=== PATIENT | female | born 1955 | race Two or more races ===

== ENCOUNTER 2016-12-19 17:05 | Inpatient (IN) | payer OTHER ==
[~2016-12-19] VITALS: Ht 157.5 cm; Wt 65.2 kg
[~2016-12-19 17:05] MED LIST: XANAX PO; ZOLOFT PO; ZOLPIDEM PO
[2016-12-19] MEDS ORDERED: SOD CHLORIDE 0.9% 1,000 ML IV STA (18:15)
--- NOTE | 2016-12-19 18:52 | RADRPT ---
PROCEDURE: CT brain without contrast CLINICAL INDICATION: Syncope TECHNIQUE: A CT of the brain was performed utilizing axial sections from the skull base through th e vertex without contrast. Sagittal and coronal images were also reformatted. The exam CTDIvol = 40. 35 mGy and DLP = 106.33 mGy-cm. COMPARISON: None available FINDINGS: No acute intracranial hemorrhage is identified. There is no mass effect or midline shift. No extra -axial fluid collection is seen. The ventricles and sulci are within normal limits for size and con figuration. The density of the brain is within normal limits. Gonzalez-white differentiation is preser bryon. The osseous structures are unremarkable. The mastoid air cells and visualized paranasal sinuses are clear. RPTAT:HJJR IMPRESSION: Unremarkable noncontrast CT of the brain. Physician Breanna Date Time Electronically viewed and signed by Physician Breanna on 12/19/2016 18:52 /
--- NOTE | 2016-12-19 18:57 | RADRPT ---
PROCEDURE: CT chest without contrast CLINICAL INDICATION: Syncope TECHNIQUE: CT scan of the chest with contrast was performed without intravenous contrast, the the patient imaged in a left lateral decubitus position. Coronal and sagittal images were reformatted. The CTDIvol = 6.28 mGy and DLP = 261.42 mGycm. COMPARISON: None available. FINDINGS: Lungs, airway and pleura: The trachea and bronchi are patent as well as normal in caliber. There i s no evidence of pneumothorax, parenchymal contusion or pulmonary infiltrate. No mass lesion is dem onstrated. A 5 mm semi solid nodule in the right middle lobe near the junction of the minor and edouard or fissures is noted (series 4 image 66). No other nodules are demonstrated. Mild dependent subsegm ental atelectasis in the inferior lingula and lateral left lower lobe is identified The pleural spa rupali are clear, without effusions. Mediastinum, rosalva and cardiovascular: The heart is normal in size. There is no evidence for perica rdial effusion. The thoracic aorta is normal in caliber. There is no evidence for hilar mass and n o mediastinal adenopathy is present. No mediastinal hematoma or pneumomediastinum is seen The esoph katarzyna is normal in caliber. Osseous structures and musculoskeletal findings: Concave appearance of the superior T12, L1 and L2 endplates likely related to chronic mild compression deformities. There is no evidence of acute fra cture, lytic or blastic lesion. Mild thoracic spondylosis is present. No chest wall abnormalities are present. The axillary regions are unremarkable. Visualized upper abdomen: No abnormalities are identified. The adrenal glands are normal bilateral ly. RPTAT:HJJR IMPRESSION: 1. Minimal dependent subsegmental atelectasis in the left lung to be in the decubitus positioning f or imaging. No evidence of acute intrathoracic abnormality. 2. Approximately 5 mm right middle lobe pulmonary nodule without calcification is indeterminate. F ollow-up evaluation should be based upon Fleischner criteria. 3. Chronic-appearing superior T12, L1 and L2 endplate compression deformities with moderate thoraci c spondylosis. Physician Breanna Date Time Electronically viewed and signed by Physician Breanna on 12/19/2016 18:57 JR/
[2016-12-19 19:20] LABS: ADD SCAN DIFF NO
[2016-12-19 19:21] LABS: BASOPHIL # 0.1 10^3/ul (0.0-0.1); BASOPHILS % 0.6 % (0.0-2.0); EOSINOPHILS # 0.2 10^3/ul (0.0-0.5); EOSINOPHILS % 2.3 % (0.0-7.0); HEMOGLOBIN 14.6 g/dl (12.0-16.0); LYMPHOCYTES # 1.2 10^3/ul (0.8-2.9); LYMPHOCYTES % 13.1 % (15.0-51.0); MEAN CORPUSCULAR HGB CONC 32.4 g/dl (32.0-37.0); MEAN CORPUSCULAR VOLUME 89.5 fl (82.0-101.0); MEAN PLATELET VOLUME 10.4 fl (7.4-10.4); MONOCYTE # 0.6 10^3/ul (0.3-0.9); MONOCYTES % 7.2 % (0.0-11.0); NEUTROPHIL # 6.7 10^3/ul (1.6-7.5); NEUTROPHILS % 76.3 % (39.0-77.0); PLATELET COUNT 287 10^3/UL (140-415); RED BLOOD COUNT 5.03 10^6/ul (4.20-5.40); RED CELL DISTRIBUTION WIDTH 12.6 % (11.5-14.5); WHITE BLOOD COUNT 8.8 10^3/ul (4.8-10.8)
[2016-12-19 19:30] LABS: INR 0.81; PROTIME 11.2 Sec (12.2-14.2); PT RATIO 0.9
[2016-12-19 19:31] LABS: CHLORIDE 101 mmol/L (97-110)
[2016-12-19 19:32] LABS: PARTIAL THROMBOPLASTIN TIME 26.9 Sec (25.0-35.0); SODIUM 144 mmol/L (135-144)
[2016-12-19 19:34] LABS: ALBUMIN/GLOBULIN RATIO 1.42; ALKALINE PHOSPHATASE 122 IU/L (42-121); ANION GAP 18 (8-16); ASPARTATE AMINO TRANSFERASE 60 IU/L (15-46); BILIRUBIN,INDIRECT 0.2 mg/dl (0-1.1); BILIRUBIN,TOTAL 0.2 mg/dl (0.2-1.3); BLOOD UREA NITROGEN 12 mg/dl (7-20); CARBON DIOXIDE 29 mmol/L (21-31); CREATININE 0.65 mg/dl (0.44-1.00); TOTAL PROTEIN 8.5 g/dl (6.1-8.1)
[2016-12-19 19:35] LABS: ALANINE AMINOTRANSFERASE 62 IU/L (13-69); CALCIUM 9.4 mg/dl (8.4-10.2); CREATINE KINASE 991 IU/L (23-200); GLUCOSE 114 mg/dl (70-220)
[2016-12-19 19:43] LABS: CK-MB 6.61 ng/ml (0.0-2.4)
[2016-12-19 19:44] LABS: ADD UMIC YES; URINE BILIRUBIN (Dip) NEGATIVE (NEGATIVE); URINE BLOOD (Dip) NEGATIVE (NEGATIVE); URINE COLOR LT. YELLOW (YELLOW); URINE GLUCOSE (Dip) NEGATIVE (NEGATIVE); URINE KETONES (Dip) NEGATIVE (NEGATIVE); URINE LEUKOCYTE ESTERASE (Dip) 2+ (NEGATIVE); URINE NITRITE (Dip) NEGATIVE (NEGATIVE); URINE TOTAL PROTEIN (Dip) NEGATIVE (NEGATIVE); URINE UROBILINOGEN (Dip) 0.2 E.U./dL (0.1-1.0)
[2016-12-19] MEDS ORDERED: ZOLP10TA5 PO (19:47)
[2016-12-19] MEDS ORDERED: [UNRECOGNIZED DRUG - CODE] PO (19:50)
[2016-12-19] MEDS ORDERED: CHOL100062 PO (19:50)
[2016-12-19] MEDS ORDERED: GLUC-105 PO (19:51)
[2016-12-19] MEDS ORDERED: GLUC1CAP38 PO (19:51)
[2016-12-19] MEDS ORDERED: CHLO4TAB PO (19:52)
[2016-12-19] MEDS ORDERED: METF500T4 PO (19:53)
[2016-12-19] MEDS ORDERED: SERT25TA83 PO (19:56)
[2016-12-19] MEDS ORDERED: AMOX600S3 PO (19:58)
[2016-12-19 20:00] LABS: TROPONIN-I < 0.012 ng/ml (0.00-0.12)
[2016-12-19] MEDS ORDERED: ONDANSETRON 4 MG INJ IV STA (20:09)
[2016-12-19] MEDS ORDERED: morphine 2 MG INJ IV STA (20:09)
[2016-12-19] MEDS ORDERED: DICLOFENAC SODIUM 37.5 MG/ML VIAL IV STA (20:17)
[2016-12-19] MEDS ORDERED: ACETAMINOPHEN 325 MG TAB PO PRN (21:00)
[2016-12-19] MEDS ORDERED: ONDANSETRON 4 MG INJ IV PRN (21:00)
[2016-12-19 21:06] LABS: BACTERIA,URINE FEW; SQUAMOUS EPITHELIAL CELL,UR FEW; URINE RBCS 0-2 /HPF (0)
[2016-12-19 21:46] LABS: D-DIMER 1188.27 ng/ml (<460)
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
[2016-12-19 22:30] VITALS: TEMP 97.8
[2016-12-19 23:05] VITALS: PULSE 66
[2016-12-20] VITALS (13 sets, daily range): BP systolic 85–103; BP diastolic 43–64; PULSE 59–69; RESP 18–20; Ht 157.5 cm; Wt 65.2 kg
[2016-12-20] MEDS ORDERED: ACETAMINOPHEN 325 MG TAB PO PRN
[2016-12-20] MEDS ORDERED: GLUCOSE GEL 15 GRAM TUBE PO PRN ×2 (00:30)
[2016-12-20] MEDS ORDERED: DEXTROSE 50% 50 ML SYRINGE IV PRN ×2 (00:30)
[2016-12-20] MEDS ORDERED: GLUCOSE GEL 15 GRAM TUBE BUCCAL PRN (00:30)
[2016-12-20] MEDS ORDERED: GLUCAGON 1 MG INJ IM PRN (00:30)
[2016-12-20] MEDS: SOD CHLORIDE 0.9% 1,000 ML IV SCH ×3 (00:36→16:39)
[2016-12-20] MEDS: HYDROCODONE/APAP (5/325) TAB PO PRN ×2 (00:37→09:06)
[2016-12-20] MEDS: ZOLPIDEM 5 MG TAB PO PRN ×2 (00:37→23:18)
[2016-12-20] MEDS: ACCU-CHEK XX SCH (01:23)
[2016-12-20] MEDS: PANTOPRAZOLE 40 MG INJ IV SCH (06:52)
[2016-12-20] MEDS: INSULIN ASPART [NOVOLOG] 3 ML PEN SC SCH ×4 (07:55→20:45)
[2016-12-20 08:18] LABS: ADD SCAN DIFF NO
[2016-12-20 08:32] LABS: BASOPHILS % 0.5 % (0.0-2.0); EOSINOPHILS # 0.3 10^3/ul (0.0-0.5); EOSINOPHILS % 4.6 % (0.0-7.0); HEMATOCRIT 40.7 % (37.0-47.0); HEMOGLOBIN 13.2 g/dl (12.0-16.0); LYMPHOCYTES # 0.9 10^3/ul (0.8-2.9); LYMPHOCYTES % 13.8 % (15.0-51.0); MEAN CORPUSCULAR HEMOGLOBIN 29.3 pg (29.0-33.0); MEAN CORPUSCULAR HGB CONC 32.4 g/dl (32.0-37.0); MEAN CORPUSCULAR VOLUME 90.4 fl (82.0-101.0); MEAN PLATELET VOLUME 11.4 fl (7.4-10.4); MONOCYTE # 0.6 10^3/ul (0.3-0.9); NEUTROPHIL # 4.5 10^3/ul (1.6-7.5); NEUTROPHILS % 71.8 % (39.0-77.0); PLATELET COUNT 212 10^3/UL (140-415); RED CELL DISTRIBUTION WIDTH 12.9 % (11.5-14.5); WHITE BLOOD COUNT 6.3 10^3/ul (4.8-10.8)
[2016-12-20 08:49] LABS: CHOL/HDL RATIO 5.5 RATIO; CREATININE 0.57 mg/dl (0.44-1.00); POTASSIUM 4.4 mmol/L (3.5-5.1)
[2016-12-20] MEDS: CHOLECALCIFEROL 1,000 UNIT TAB PO SCH (09:05)
[2016-12-20] MEDS: ASPIRIN 81 MG TAB PO SCH (09:05)
[2016-12-20] MEDS: SERTRALINE 50 MG TAB PO SCH (09:06)
[2016-12-20] MEDS ORDERED: ONDANSETRON 4 MG INJ IV PRN (17:30)
--- NOTE | 2016-12-20 18:30 | QN ---
Documentation Comment [id number] ALL CARVALHO MD Dec 20, 2016 18:30
[2016-12-20] MEDS: ATORVASTATIN 10 MG TAB PO SCH (20:44)
[2016-12-20] MEDS ORDERED: POLYETHYLENE GLYCOL 17 GM PACKET PO ONE (21:00)
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
[2016-12-21] VITALS (11 sets, daily range): BP systolic 93–110; BP diastolic 48–89; PULSE 52–66; RESP 18–20
[2016-12-21] MEDS: ACCU-CHEK XX SCH (02:00)
[2016-12-21] MEDS: PANTOPRAZOLE 40 MG INJ IV SCH (06:13)
[2016-12-21] MEDS: SOD CHLORIDE 0.9% 1,000 ML IV SCH ×2 (06:13→22:00)
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
[2016-12-21] MEDS: INSULIN ASPART [NOVOLOG] 3 ML PEN SC SCH ×4 (07:55→21:00)
[2016-12-21] MEDS: ASPIRIN 81 MG TAB PO SCH (08:49)
[2016-12-21] MEDS: POLYETHYLENE GLYCOL 17 GM PACKET PO SCH (08:50)
[2016-12-21] MEDS: CHOLECALCIFEROL 1,000 UNIT TAB PO SCH (08:50)
[2016-12-21] MEDS: SERTRALINE 50 MG TAB PO SCH (08:51)
--- NOTE | 2016-12-21 21:03 | RADRPT ---
Echocardiogram Report Patient Name: ILEANA UPTON Gender: Female Date: 1955 Study Date: 20-Dec-2016 Trading Manager: Darlene Felder [facility] Location: [id number] Ref. Physician: ALL CARVALHO Quality: Good Procedures: Transthoracic echocardiogram with complete 2D, M-Mode, and doppler examination. Indications: Syncope. 2D/M Mode Doppler Measurement Value Normal Ranges Measurement Value Normal Ranges LVIDd 2D 3.8 3.5 - 5.6 cm AV Peak Dario 1.7 m/sec LVIDs 2D 2.1 2.1 - 4.1 cm AV Peak PG 12.0 mmHg FS 2D 44.1 % LVOT Peak Dario 1.5 m/sec LVPWd 2D 0.9 0.6 - 1.1 cm LVOT Peak PG 9.0 mmHg IVSd 2D 1.0 0.6 - 1.1 cm MV E Peak Dario 1.1 m/sec IVS/LVPW 2D 1.1 MV A Peak Dario 0.8 m/sec AoR Diam 2D 2.6 2.0 - 3.7 cm MV E/A 1.4 LA/Ao 2D 1 0 - 1 MV Decel Time 141 msec EDV 2D 56.2 cm3 MV E/A 1.4 ESV 2D 9.8 cm3 TR Peak Dario 2.2 m/sec LA Dimen 2D 3.0 2.3 - 4.0 cm TR Peak PG 20.0 mmHg RVSP 23.0 mmHg Findings Left Ventricle: Normal left ventricular systolic function. Normal left ventricular cavity size. Normal left ventricular wall thickness. Ejection fraction is visually estimated at 6065 %. Tissue Doppler/Mitral Doppler indices are within normal limits. Right Ventricle: Normal right ventricular size. Normal right ventricular systolic function. Left Atrium: The left atrium is normal in size. Right Atrium: The right atrium is normal in size. Mitral Valve: Normal appearance and function of the mitral valve with trace physiologic regurgitation. Aortic Valve: Normal appearance of the aortic valve. No significant aortic stenosis or insufficiency. Tricuspid Valve: Normal appearance and function of the tricuspid valve with trace physiologic regurgitation. Normal right ventricular systolic pressure. Pulmonic Valve: Normal pulmonic valve appearance. Pericardium: Normal pericardium with no significant pericardial effusion. Aorta: Normal aortic root. IVC: Normal size and normal respiratory collapse consistent with normal right atrial pressure. Conclusions 1.Normal left ventricular systolic function. Normal left ventricular cavity size. Normal left ventricular wall thickness. Ejection fraction is visually estimated at 60-65 %. Tissue Doppler/Mitral Doppler indices are within normal limits. 2.Normal appearance and function of the mitral valve with trace physiologic regurgitation. 3.Normal appearance and function of the tricuspid valve with trace physiologic regurgitation. Normal right ventricular systolic pressure. Electronically Signed By: Jorge Luis Hubbard 21-Dec-2016 21:02:53 -0700 Patient Name: ILEANA UPTON Study Date: 20-Dec-2016 [id number]
[2016-12-21] MEDS: ATORVASTATIN 10 MG TAB PO SCH (21:59)
--- NOTE | 2016-12-21 23:00 | PN ---
Date/Time of Note Date/Time of Note DATE: 12/21/16 TIME: 22:59 Assessment/Plan VTE Prophylaxis VTE Prophylaxis Intervention: other Lines/Catheters IV C[facility] Type [facility] Peripheral IV Assessment/Plan Chief Complaint/Hosp Course IMPRESSION: 1. The patient has syncopal episode. 2. Rule out transient ischemic attack, rule out cerebrovascular accident, rule out seizures. 3. Rule out hypoglycemic episode. 4. Rule out drug-induced in the form of Ambien. plan per neuro Problems: Subjective 24 Hr Interval Summary Respiratory: no complaints Cardiovascular: no complaints Gastrointestinal: no complaints Exam/Review of Systems Vital Signs Vitals Vital Signs Date Time Temp Pulse Resp B/P Pulse Ox O2 Delivery O2 Flow Rate FiO2 12/21/16 20:39 57 12/21/16 19:33 98.2 20 103/51 96 12/20/16 19:54 Nasal Cannula 2.0 Intake and Output 12/20/16 12/20/16 12/21/16 15:00 23:00 07:00 Intake Total 800 ml 650 ml Balance 800 ml 650 ml Exam ENMT: nl external ears & nose Neck: supple Respiratory: clear to auscultation Cardiovascular: regular rate and rhythm Gastrointestinal: soft Musculoskeletal: nl extremities to inspection Extremities: normal pulses Results Result Diagram: 12/20/1670412/20/16 07 Results 24 hrs Laboratory Tests Test 12/21/16 07:36 12/21/16 11:39 12/21/16 17:54 12/21/16 21:57 Bedside Glucose 115 118 99 109 Medications Medications Current Medications Cholecalciferol (Vitamin D) 1,000 unit DAILY PO Last administered on 12/21/16 08:50; Admin Dose 1,000 UNIT; Start 12/20/16 at 09:00 Sertraline HCl (Zoloft) 25 mg QAM PO Last administered on 12/20/16 09:06; Admin Dose 25 MG; Start 12/20/16 at 09:00 Zolpidem Tartrate (Ambien) 10 mg QHS PRN PO INSOMNIA Last administered on 23:18; Admin Dose 10 MG; Start 12/20/16 at 00:00 Diagnostic Test (Pha) 1 ea 1 ea 02 XX ; Start 12/20/16 at 02:00 Sodium Chloride (NS) 1,000 ml @ 70 mls/hr [id number] IV Last administered on 12/21 22:00; Admin Dose 70 MLS/HR; Start 12/20/16 at 00:00 Aspirin (Aspirin) 81 mg DAILY PO Last administered on 12/21/16 08:49; Admin Dose 81 MG; Start 12/20/16 at 09:00 Acetaminophen (Tylenol Tab) 650 mg Q6H PRN PO PAIN AND OR ELEVATED TEMP Last administered on 12/21/16 16:14; Admin Dose 650 MG; Start 12/20/16 at 00:00 Acetaminophen/ Hydrocodone Bitart ([place] (5/325)) 1 tab Q6H PRN PO PAIN Last administered on 12/20/16 09:06; Admin Dose 1 TAB; Start 12/20/16 at 00:00 Miscellaneous Information 1 ea NOTE XX ; Start 12/20/16 at 00:30 Glucose (Glutose) 15 gm Q15M PRN PO DECREASED GLUCOSE; Start 12/20/16 at 00:30 Glucose (Glutose) 22.5 gm Q15M PRN PO DECREASED GLUCOSE; Start 12/20/16 at 00: 30 Dextrose (D50w Syringe) 25 ml Q15M PRN IV DECREASED GLUCOSE; Start 12/20/16 at 00:30 Dextrose (D50w Syringe) 50 ml Q15M PRN IV DECREASED GLUCOSE; Start 12/20/16 at 00:30 Glucagon (Glucagen) 1 mg Q15M PRN IM DECREASED GLUCOSE; Start 12/20/16 at 00:30 Glucose (Glutose) 15 gm Q15M PRN BUCCAL DECREASED GLUCOSE; Start 12/20/16 at 00 :30 Polyethylene Glycol (Miralax) 8.5 gm DAILY PO Last administered on 12/21/16 08 :50; Admin Dose 8.5 GM; Start 12/21/16 at 09:00 Ondansetron HCl (Zofran Inj) 4 mg Q6H PRN IV NAUSEA AND/OR VOMITING; Start at 17:30 Atorvastatin Calcium (Lipitor) 10 mg HS PO Last administered on 12/21/16 21:59 ; Admin Dose 10 MG; Start 12/20/16 at 21:00 Pantoprazole (Protonix Tab) 40 mg DAILY@06 PO ; Start 12/22/16 at 06:00 ALL CARVALHO MD Dec 21, 2016 23:00
[2016-12-21] MEDS: ZOLPIDEM 5 MG TAB PO PRN (23:16)
[2016-12-22] VITALS (10 sets, daily range): BP systolic 102–125; BP diastolic 53–68; PULSE 51–60; RESP 15–20
[2016-12-22] MEDS: ACCU-CHEK XX SCH (02:00)
[2016-12-22] MEDS: PANTOPRAZOLE (EC) 40 MG TAB PO SCH (06:19)
[2016-12-22] MEDS: INSULIN ASPART [NOVOLOG] 3 ML PEN SC SCH ×4 (07:55→20:32)
--- NOTE | 2016-12-22 07:58 | RADRPT ---
PROCEDURE: MR Brain with and without contrast. CLINICAL INDICATION: Syncope. TECHNIQUE: Multiplanar multisequence MRI of the brain was performed before and after the administra tion of 10 cc of Magnevist. COMPARISON: Noncontrast CT of the head from December 19, 2016. FINDINGS: The ventricles and sulci are within normal limits. There are few bilateral subcortical T2 hyperintensities which are nonspecific. The bilateral hippo campi are normal in size without abnormal signal. There is no abnormal intracranial enhancement. There is no acute infarction. There is no intracranial hemorrhage or extra-axial fluid collection. There is no mass effect. There is no midline shift. The brainstem is within normal limits. The posterior fossa is unremarkable. The normal intracranial, intravascular flow voids are preserved. There is moderate right sphenoid sinus mucosal thickening. There is mild bilateral maxillary sinus m ucosal thickening. There is mild bilateral ethmoid sinus mucosal thickening. The orbits are grossly unremarkable. There is no destructive osseous lesion. IMPRESSION: 1. No acute infarction or intracranial hemorrhage. 2. A few bilateral subcortical T2 hyperintensities which are nonspecific but may be related to seque lae of migraines, prior trauma, prior infectious/inflammatory etiologies or early chronic microvascu lar ischemic changes. 3. No abnormal intracranial enhancement. Further findings as detailed above. RPTAT: PP .Raúl Kumar MD, Date Time Electronically viewed and signed by .Raúl Kumar MD, on 12/22/2016 07:57 .F/
[2016-12-22] MEDS: ASPIRIN 81 MG TAB PO SCH (08:07)
[2016-12-22] MEDS: POLYETHYLENE GLYCOL 17 GM PACKET PO SCH (08:07)
[2016-12-22] MEDS: CHOLECALCIFEROL 1,000 UNIT TAB PO SCH (08:07)
[2016-12-22] MEDS: SERTRALINE 50 MG TAB PO SCH (08:08)
[2016-12-22] MEDS: SOD CHLORIDE 0.9% 1,000 ML IV SCH ×2 (09:12→22:44)
--- NOTE | 2016-12-22 10:21 | SP ---
DATE OF PROCEDURE: 12/20/2016 PROCEDURE: Electroencephalogram. INDICATION: The patient is a 61-year-old lady status post syncopal episode versus complex partial s eizure. DESCRIPTION OF PROCEDURE: Routine EEG was recorded digitally. Pmcit-fn-noppc and twegk-dn-rxm ishaan ages were recorded and reviewed. All impedances were measured and recorded. Cap electrodes were pl aced in accordance with International 10-20 system of electrode placement. FINDINGS: Symmetrically distributed background activity of medium amplitude ranging in frequency be tween 9-11 cycles per second was seen. This activity attenuates with eye opening. Photic stimulati on produces no definite driving. Hyperventilation was not performed. When the patient gets drowsy and falls asleep, background rhythm gets less organized, partially replaced by slower activity of 4- 6 cycles per second. No definite epileptiform activity was seen. No signs of ongoing electrographi c seizures or lateralized slowing. IMPRESSION: Essentially normal study. Please correlate clinically. Dictated By: CORNELIA RAMOS/HELEN Conf#: [id number] DID#: [id number]
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
--- NOTE | 2016-12-22 18:33 | PN ---
Date/Time of Note Date/Time of Note DATE: 12/22/16 TIME: 18:31 Assessment/Plan VTE Prophylaxis VTE Prophylaxis Intervention: other Lines/Catheters IV Catheter Type (from Nrs): Peripheral IV Assessment/Plan Chief Complaint/Hosp Course IMPRESSION: 1. The patient has syncopal episode. 2. Rule out transient ischemic attack, rule out cerebrovascular accident, rule out seizures. 3. Rule out hypoglycemic episode. 4. Rule out drug-induced in the form of Ambien. 5 cp plan per neuro dr card called Problems: Subjective 24 Hr Interval Summary Subjective hx not possible: other (c/o chest pain) Exam/Review of Systems Vital Signs Vitals Vital Signs Date Time Temp Pulse Resp B/P Pulse Ox O2 Delivery O2 Flow Rate FiO2 12/22/16 16:37 60 12/22/16 15:18 98.0 20 125/68 96 12/20/16 19:54 Nasal Cannula 2.0 Intake and Output 12/21/16 12/21/16 12/22/16 15:00 23:00 07:00 Intake Total 2440 ml 940 ml Balance 2440 ml 940 ml Exam Neck: supple Respiratory: clear to auscultation Cardiovascular: regular rate and rhythm Gastrointestinal: soft Neurological: PRECIPITATE WASHER II-XII intact, nl mental status, nl speech, nl strength Results Result Diagram: 12/20/1670412/20/16704 Results 24 hrs Laboratory Tests Test 12/21/16 21:57 12/22/16 07:31 12/22/16 12:49 12/22/16 17:14 Bedside Glucose 109 109 104 128 Medications Medications Current Medications Cholecalciferol (Vitamin D) 1,000 unit DAILY PO Last administered on 12/22/16 08:07; Admin Dose 1,000 UNIT; Start 12/20/16 at 09:00 Sertraline HCl (Zoloft) 25 mg QAM PO Last administered on 12/20/16 09:06; Admin Dose 25 MG; Start 12/20/16 at 09:00 Zolpidem Tartrate (Ambien) 10 mg QHS PRN PO INSOMNIA Last administered on 23:16; Admin Dose 10 MG; Start 12/20/16 at 00:00 Diagnostic Test (Pha) 1 ea 1 ea 02 XX ; Start 12/20/16 at 02:00 Sodium Chloride (NS) 1,000 ml @ 70 mls/hr [id number] IV Last administered on 12/21 22:00; Admin Dose 70 MLS/HR; Start 12/20/16 at 00:00 Aspirin (Aspirin) 81 mg DAILY PO Last administered on 12/22/16 08:07; Admin Dose 81 MG; Start 12/20/16 at 09:00 Acetaminophen (Tylenol Tab) 650 mg Q6H PRN PO PAIN AND OR ELEVATED TEMP Last administered on 12/21/16 16:14; Admin Dose 650 MG; Start 12/20/16 at 00:00 Acetaminophen/ Hydrocodone Bitart ([place] (5/325)) 1 tab Q6H PRN PO PAIN Last administered on 12/20/16 09:06; Admin Dose 1 TAB; Start 12/20/16 at 00:00 Miscellaneous Information 1 ea NOTE XX ; Start 12/20/16 at 00:30 Glucose (Glutose) 15 gm Q15M PRN PO DECREASED GLUCOSE; Start 12/20/16 at 00:30 Glucose (Glutose) 22.5 gm Q15M PRN PO DECREASED GLUCOSE; Start 12/20/16 at 00: 30 Dextrose (D50w Syringe) 25 ml Q15M PRN IV DECREASED GLUCOSE; Start 12/20/16 at 00:30 Dextrose (D50w Syringe) 50 ml Q15M PRN IV DECREASED GLUCOSE; Start 12/20/16 at 00:30 Glucagon (Glucagen) 1 mg Q15M PRN IM DECREASED GLUCOSE; Start 12/20/16 at 00:30 Glucose (Glutose) 15 gm Q15M PRN BUCCAL DECREASED GLUCOSE; Start 12/20/16 at 00 :30 Polyethylene Glycol (Miralax) 8.5 gm DAILY PO Last administered on 12/22/16 08 :07; Admin Dose 8.5 GM; Start 12/21/16 at 09:00 Ondansetron HCl (Zofran Inj) 4 mg Q6H PRN IV NAUSEA AND/OR VOMITING; Start at 17:30 Atorvastatin Calcium (Lipitor) 10 mg HS PO Last administered on 12/21/16 21:59 ; Admin Dose 10 MG; Start 12/20/16 at 21:00 Pantoprazole (Protonix Tab) 40 mg DAILY@06 PO Last administered on 4/27/17at 06 :19; Admin Dose 40 MG; Start 12/22/16 at 06:00 ALL CARVALHO MD Dec 22, 2016 18:33
[2016-12-22] MEDS ORDERED: ATORVASTATIN 20 MG TAB PO SCH (21:00)
[2016-12-22] MEDS: ZOLPIDEM 5 MG TAB PO PRN (22:42)
[2016-12-23] VITALS (10 sets, daily range): BP systolic 82–104; BP diastolic 52–55; PULSE 50–60; RESP 15–18
[2016-12-23] MEDS: ACCU-CHEK XX SCH (02:00)
[2016-12-23] MEDS: PANTOPRAZOLE (EC) 40 MG TAB PO SCH (05:15)
[2016-12-23] MEDS: INSULIN ASPART [NOVOLOG] 3 ML PEN SC SCH ×2 (07:55→11:48)
[2016-12-23] MEDS: POLYETHYLENE GLYCOL 17 GM PACKET PO SCH (08:03)
[2016-12-23] MEDS: ASPIRIN 81 MG TAB PO SCH (08:03)
[2016-12-23] MEDS: CHOLECALCIFEROL 1,000 UNIT TAB PO SCH (08:03)
[2016-12-23] MEDS: SERTRALINE 50 MG TAB PO SCH (08:03)
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
--- NOTE | 2016-12-23 12:39 | PDOCDIS ---
Discharge Instructions CONDITION Patient Condition: Good HOME CARE INSTRUCTIONS: Diet Instructions: RegularSpecial Diet: INPATIENT ACTIVITY: Activity Restrictions: Slowly Increase Activity Bathing Restrictions: Shower FOLLOW UP/APPOINTMENTS Appointments 1. Primary care In 1 [address] SCHOOL/WORK RELEASE May return to School/Work on: December 26, 2016 May return to School/Work with: With Restrictions (no driving) UNRULY BOWMAN Dec 23, 2016 12:39
== END 2016-12-23 13:49 | disposition home or self-care (01) | DRG 312 ==
LOC: FTE 17:05 → TEL 20:38
PROVIDERS: ADMIT Internal Medicine Nephrology; ATTEND Internal Medicine Nephrology
DX: R55 Syncope and collapse (principal); E11.8 Type 2 diabetes mellitus with unspecified complications; I95.9 Hypotension, unspecified; F32.9 Major depressive disorder, single episode, unspecified; Z79.84 Long term (current) use of oral hypoglycemic drugs; S29.8XXA Other specified injuries of thorax, initial encounter; V43.52XA Car driver injured in collision with other type car in traffic accident, initial encounter; Y92.410 Unspecified street and highway as the place of occurrence of the external cause; G47.00 Insomnia, unspecified
CPT/HCPCS: 70450; 70553; 71250; 80048; 80053; 80061; 81001; 81003; 82550; 82553; 82962; 83036; 84484; 85025; 85378; 85610; 85730; 87086; 93005; 93306; 95819; 96374; 96375; C9113; J1815; J2405; J7030